=== PATIENT | female | born 1985 | race Caucasian/White ===

== ENCOUNTER 2021-02-22 05:42 | Inpatient (IN) | payer OTHER ==
[2021-02-22] MEDS ORDERED: BICITRA ORAL LIQD 30ML PO ONE (06:48)
[2021-02-22] MEDS ORDERED: METOCLOPRAMIDE 10 MG/2 ML INJ IV ONE (06:48)
[2021-02-22] MEDS ORDERED: FAMOTIDINE 20 MG/2 ML INJ IV ONE (06:48)
[2021-02-22] MEDS ORDERED: OXYTOCIN DRIP 30 UNITS/500 ML BAG IV SCH ×2 (07:00→10:00)
[2021-02-22] MEDS ORDERED: ceFAZolin/Water 2 GM/20 ML 2 GM/20 ML SYRINGE IV NR (07:00)
[2021-02-22] MEDS ORDERED: LACTATED RINGERS 1,000 ML IV SCH ×2 (07:00→17:45)
[2021-02-22] MEDS ORDERED: BUTORPHANOL 2 MG/1 ML INJ IV PRN (07:41)
[2021-02-22] MEDS ORDERED: fentaNYL 100 MCG/2 ML INJ IV PRN (07:41)
[2021-02-22] MEDS ORDERED: ACETAMINOPHEN 325 MG TAB PO PRN ×2 (07:41→09:42)
[2021-02-22] MEDS ORDERED: ONDANSETRON 4 MG/2 ML INJ ONE ×2 (08:12)
--- NOTE | 2021-02-22 08:27 | Anesthesia Day of Surgery ---
Anesthesia Day of Surgery - Day of Surgery Patient Examined: Yes Patient H&P Reviewed: Yes Patient is NPO: Yes Beta Blockers: No Pulmonary Clearance: No Ezequiel's Test: Negative
--- NOTE | 2021-02-22 08:32 | Anesthesia Consultation ---
Anesthesia Consult and Med Hx Date of service: 02/22/21 - Airway Anesthetic Teeth Evaluation: Poor ROM Head & Neck: Adequate Mental/Hyoid Distance: Adequate Mallampati Class: Class II Intubation Access Assessment: Probably Good - Pulmonary Exam CTA: Yes - Cardiac Exam Cardiac Exam: RRR - Pre-Operative Health Status ASA Pre-Surgery Classification: ASA3 Proposed Anesthetic Plan: Spinal - Pre-Anesthesia Comment Pre-Anesthesia Comments: csection 2011 - Pulmonary Hx Smoking: No (stop 2009. Smoked for a fews months) Hx Asthma: Yes Hx Respiratory Symptoms: Yes SOB: Yes COPD: Yes Home Oxygen Therapy: Yes Hx Pneumonia: Yes Hx Sleep Apnea: No (snores, denies HARRY) - Cardiovascular System Hx Hypertension: Yes (history of HTN 2yrs ago. B/p under control with diet and exercise. ) Hx Coronary Artery Disease: No Hx Heart Attack/AMI: No Hx Angina: No Hx Percutaneous Transluminal Coronary Angioplasty (PTCA): No Hx Cardia Arrhythmia: No Hx Pacemaker: No Hx Internal Defibrillator: No Hx Valvular Heart Disease: No Hx Heart Murmur: No Hx Peripheral Vascular Disease: No - Central Nervous System Hx Neuromuscular Disorder: No Hx Seizures: No CVA: No Hx Back Pain: Yes Hx Psychiatric Problems: Yes (anxiety) - Gastrointestinal Hx Ulcer: No Hx Gastroesophageal Reflux Disease: Yes - Endocrine Hx Renal Disease: Yes (Kidney infection/stones 1 yr ago ) Hx End Stage Renal Disease: No Hx Cirrhosis: No Hx Liver Disease: No Hx Insulin Dependent Diabetes: No Hx Non-Insulin Dependent Diabetes: No Hx Thyroid Disease: No Hx Hypothyroidism: No Hx Hyperthyroidism: No - Hematic Hx Anemia: No Hx Sickle Cell Disease: No - Other Systems Hx Alcohol Use: Yes (occasionally) Hx Substance Use: No Hx Cancer: No Hx Obesity: Yes
[2021-02-22] MEDS ORDERED: HYDROmorphone 1 MG/1 ML INJ IV PRN (08:47)
[2021-02-22] MEDS ORDERED: dexAMETHasone 20 MG/5 ML VIAL ONE (08:53)
[2021-02-22] MEDS ORDERED: BUPIVACAINE/PF (0.25%) 2.5 MG/ML 30 ML VIAL INFILTRATI ONE ×2 (08:54)
[2021-02-22] MEDS ORDERED: NALOXONE 0.4 MG/1 ML INJ IV PRN ×2 (09:00→09:42)
[2021-02-22] MEDS ORDERED: ONDANSETRON 4 MG/2 ML INJ IV PRN (09:00)
[2021-02-22 09:16] LABS: Basophils % (Auto) 0.1 % (0.0-1.8); Eosinophils % (Auto) 0.2 % (0.0-4.3); Hematocrit 39.3 % (30.3-42.9); Hemoglobin 13.1 gm/dl (10.1-14.3); Lymphocytes # (Auto) 1.3 K/mm3 (1.2-5.4); Lymphocytes % (Auto) 17.9 % (13.4-35.0); Mean Corpuscular HGB Conc 33 % (30-34); Mean Corpuscular Volume 92 fl (79-97); Monocytes # (Auto) 0.4 K/mm3 (0.0-0.8); Monocytes % (Auto) 5.1 % (0.0-7.3); Platelet Count 199 K/mm3 (140-440); Red Blood Count 4.28 M/mm3 (3.65-5.03); Red Cell Distribution Width 14.5 % (13.2-15.2)
[2021-02-22] MEDS ORDERED: miSOPROStol 200 MCG TAB ONE (09:19)
[2021-02-22] MEDS ORDERED: CARBOPROST TROMETHAMINE 250 MCG/1 ML INJ IM ONE (09:20)
--- NOTE | 2021-02-22 09:40 | History and Physical Report ---
History of Present Illness Date of examination: 02/22/21 Date of admission: 02/22/21 05:43 Chief complaint: Leakage of fluid History of present illness: 35-year-old -0-0-1 at 37+4 weeks who presents with gross rupture membranes. The patient cervical dilatation at presentation was 1 cm. Her course was initiated in first trimester of her . Her course is complicated by advanced maternal age, and previous delivery. Will p shauna with a primary delivery. Past History Past Medical History: no pertinent history Past Surgical History: section Social history: - Obstetrical History Expected Date of Delivery: 03/11/21 Actual Gestation: 37 Week(s) 4 Day(s) : 2 Para: 1 Hx # Term Pregnancies: 1 Number of Pregnancies: 0 Spontaneous Abortions: 0 Induced : 0 Number of Living Children: 1 Medications and Allergies Allergies Allergy/AdvReac Type Severity Reaction Status Date / Time nut - unspecified Allergy Rash Verified 12/01/15 20:24 Home Medications Medication Instructions Recorded Confirmed Last Taken Type Acetaminophen [Acetaminophen TAB] 650 mg PO Q4H PRN #15 tablet 01/06/18 Unknown Rx Active Meds: Active Medications Hydromorphone HCl (Hydromorphone 1 Mg/1 Ml Inj) 0.5 mg IV Q5M PRN PRN Reason: BREAKTHROUGH PAIN Stop: 02/22/21 18:00 Lactated Ringer's (Lactated Ringers) 1,000 mls @ 2,250 mls/hr IV PREOP B[place]TON Stop: 02/23/21 07:27 Oxytocin/Sodium Chloride (Pitocin/Ns 30 Unit/500ml) 30 units in 500 mls @ 0 mls/hr IV TITR BURTON; Protocol Cefazolin Sodium (Ancef/Sterile Water 2 Gm/20 Ml) 2 gm in 20 mls @ 80 mls/hr IV PREOP NR; Protocol Stop: 02/22/21 23:45 Naloxone HCl (Naloxone 0.4 Mg/1 Ml Inj) 0.2 mg IV Q2MIN PRN PRN Reason: Res Rate </= 8 or 02 SAT < 92% Ondansetron HCl (Ondansetron 4 Mg/2 Ml Inj) 4 mg IV Q8H PRN PRN Reason: Nausea And Vomiting Review of Systems Genitourinary: leakage of fluid - Vital Signs Vital signs: Vital Signs Temp Pulse Resp BP Pulse Ox 98.1 F 88 18 120/71 99 02/22/21 06:06 02/22/21 06:06 02/22/21 06:06 02/22/21 06:06 02/22/21 06:06 Temp Pulse Resp BP Pulse Ox 98.1 F 79 18 120/71 99 02/22/21 06:06 02/22/21 09:11 02/22/21 06:06 02/22/21 06:06 02/22/21 09:11 - Physical Exam Breasts: Positive: deferred Cardiovascular: Regular rate Lungs: Positive: Clear to auscultation Abdomen: Positive: normal appearance Results Result Diagrams: 02/22/21 08:31 Abnormal lab results 02/22/21 Range/Units 08:31 Seg Neutrophils % 76.7 H (40.0-70.0) % All other labs normal. Assessment and Plan - Patient Problems (1) Spontaneous rupture of amniotic membranes Current Visit: Yes Status: Acute Plan to address problem: Will proceed with a repeat delivery (2) Previous delivery affecting Current Visit: Yes Status: Acute
[2021-02-22] MEDS ORDERED: WITCH HAZEL/ GLYCERIN PAD TP PRN (09:42)
[2021-02-22] MEDS ORDERED: LANOLIN/ZINC/DIMETHICONE (LANSINOH) 7 GM TP PRN (09:42)
[2021-02-22] MEDS ORDERED: MAGNESIUM HYDROXIDE (MOM) ORAL LIQD UDC PO PRN (09:42)
[2021-02-22] MEDS ORDERED: MORPHINE 4 MG/1 ML INJ IV PRN (09:42)
[2021-02-22] MEDS ORDERED: IBUPROFEN 600 MG TAB PO PRN (09:42)
--- NOTE | 2021-02-22 09:49 | Procedure Note ---
OB Delivery Note - Delivery Date of Delivery: 02/22/21 Surgeon: JAIME LLOYD - Section Preop diagnosis: repeat Postop diagnosis: same section procedure: section, repeat low transverse Disposition: PACU Complications: none - Infant A at 1 minute: 8 (Weight 3.43 kg) at 5 minutes: 9 Gender: Male
--- NOTE | 2021-02-22 09:52 | Operative Report ---
Operative Report Operative Report: Date of surgery: February 22, 2021 Preoperative diagnosis: at 37+4 weeks; previous delivery; spontaneous rupture membrane Postoperative diagnosis: Same as above Procedure: Repeat low transverse delivery Surgeon: Madai Montano M.D. Anesthesia: Regional Estimated blood loss: 540 mL Findings: Liveborn male infant with Apgars of 8 and 9 weight 3.43 kg Indications: 35-year-old -0-0-1 at 37+4 weeks who presents with spontaneous rupture membranes and a cervical dilatation of 1 cm. The patient is elected to proceed with a repeat delivery. Procedure: The patient was taken to the operating room and given regional anesthesia without complication. She was prepped and draped in a normal sterile fashion. A Pfannenstiel skin incision was made down to layer the fascia which was nicked in the midline extended laterally with the Bovie cautery. The superior aspect of the rectus fascia was grasped with Meddybemps clamps x2 and the rectus muscles off sharply. This was done in inferior fashion as well. The rectus muscle midline and peritoneum entered bluntly. An John retractor was then inserted. A bladder blade was placed. The vesicouterine peritoneum was then entered sharply with Metzenbaum scissors. A bladder flap was created digitally. A low transverse uterine incision was then made and extended digitally. There was clear fluid upon entry into the uterine cavity. The head was delivered through the incision with fundal pressure. The cord was clamped and cut x2 and infant was passed off to pediatrics. The placenta was then manually extracted. The uterus was then exteriorized and cleared of clots and debris. The uterine incision was then closed in a running locked fashion with 0 Vicryl additional imbricating stitch was applied for 2 layer closure. The posterior cul-de-sac was then copiously irrigated. The uterus was replaced back into the abdomen and pelvis were the gutters were then irrigated. The John retractor was then removed. The peritoneum was then reapproximated with 3-0 Vicryl incorporating the rectus muscle. The fascia was then closed with 0 Vicryl in a running fashion. The skin was then reapproximated with 3-0 Monocryl on a Tahir needle subcuticular fashion. Steri-Strips to place across the incision and a Crede procedures performed at the end of the surgery. A pressure dressing was applied to the incision. The surgery productive of a liveborn male infant with Apgars of 8 and 9 weight 3.43 kg. The patient was taken to the recovery room in stable condition. All sponge laps and needle counts correct x2.
[2021-02-22] MEDS ORDERED: PHENYLEPHRINE/NS 1,000 MCG/10 ML SYRINGE (OR USE) IV ONE (10:28)
[2021-02-22] MEDS ORDERED: ceFAZolin/STERILE WATER 2 GM/20 ML SYRINGE IV ONE (10:33)
[2021-02-22] MEDS ORDERED: WATER FOR IRRIG STERILE 1,500 ML BOTTLE IR ONE (10:53)
[2021-02-22] MEDS ORDERED: SODIUM CHLORIDE 0.9% IRR 1,500 ML BOTTLE IR ONE (10:53)
[2021-02-22] MEDS: KETOROLAC 30 MG/1 ML INJ IV PRN (17:42)
[2021-02-23] MEDS: KETOROLAC 30 MG/1 ML INJ IV PRN (00:14)
[2021-02-23 00:33] LABS: Hematocrit 31.6 % (30.3-42.9); Hemoglobin 10.6 gm/dl (10.1-14.3)
--- NOTE | 2021-02-23 07:36 | Progress Note ---
Assessment and Plan A: POD#1 s/p repeat section at term Morbid Obesity Advanced Maternal Age P: Routine postoperative advances Subjective - Subjective Date of service: 02/23/21 Principal diagnosis: s/p repeat at term, MO, AMA Interval history: No overnight events Patient reports: appetite normal, voiding normally, pain well controlled, flatus, ambulating normally, no bowel movement [place]: doing well Objective - Vital Signs Latest vital signs: Vital Signs Temp Pulse Resp BP BP Pulse Ox Pulse Ox 02/23/21 04:45 98.6 F 76 18 110/62 99 02/23/21 00:44 18 02/23/21 00:14 18 02/22/21 23:32 98.5 F 71 20 101/62 97 02/22/21 21:28 18 02/22/21 20:58 18 02/22/21 20:24 100 02/22/21 20:15 98.1 F 72 20 107/54 98 02/22/21 15:16 97.8 F 70 20 105/64 100 02/22/21 13:30 97.7 F 74 18 98/60 100 100 02/22/21 12:59 98.0 F 82 16 100/58 100 02/22/21 12:45 86 19 107/50 100 02/22/21 12:30 81 16 102/54 100 02/22/21 12:15 90 17 107/56 100 02/22/21 12:00 88 20 123/57 100 02/22/21 11:45 87 19 110/56 100 02/22/21 11:40 78 16 102/55 100 02/22/21 11:29 97.8 F 62 15 127/62 100 02/22/21 09:11 79 99 02/22/21 09:06 82 99 02/22/21 09:01 78 99 02/22/21 08:56 92 H 100 02/22/21 08:51 83 99 02/22/21 08:46 84 99 02/22/21 08:41 92 H 99 02/22/21 08:36 83 98 02/22/21 08:31 84 99 02/22/21 08:26 91 H 99 02/22/21 08:21 89 99 02/22/21 08:16 88 100 02/22/21 08:11 86 99 02/22/21 08:06 84 99 02/22/21 08:01 92 H 100 02/22/21 07:58 85 82 L 02/22/21 07:56 79 97 02/22/21 07:51 84 98 02/22/21 07:46 92 H 98 02/22/21 07:41 86 99 02/22/21 07:36 81 99 Intake and Output 02/22/21 02/23/21 02/23/21 22:59 06:59 14:59 Intake Total 120 360 Output Total 1650 800 Balance -1530 -440 Intake: Oral 120 360 Output: Urine 1650 800 Indwelling Catheter 1650 600 Void 200 Other: Total, Intake Amount 120 240 Total, Output Amount 1650 200 # Voids Void 1 - Exam Breasts: Present: deferred Abdomen: Present: soft (obese ) Uterus: Present: fundal height at umbilicus Extremities: Present: edema (1+) - Labs Labs: Abnormal lab results 02/22/21 Range/Units 08:31 Seg Neutrophils % 76.7 H (40.0-70.0) %
[2021-02-23] MEDS: oxyCODONE /ACETAMINOPHEN 5-325MG TAB PO PRN ×3 (08:30→22:53)
--- NOTE | 2021-02-23 11:48 | Progress Note ---
Spinal Anesthesia Block - Spinal Anesthesia Block Start Time: 10:15 Stop Time: 10:25 Performed by:: VICTOR HUGO TERRELL Procedure: 02/22/2021 Patient IDed, H&P reviewed, all questions and concerns were answered, and consent was signed. Timeout was performed at bedside. Patient in sitting position. Sterile prep and drape was performed. [3] ml of 1% lidocaine skin wheal at L[3]- L [4]. Needle introducer advanced. 25 gauge spinal needle advanced. Clear, free flowing CSF. negative blood, negative paresthesia. Spinal dose given. All needles removed. Patient tolerated procedure.
--- NOTE | 2021-02-23 11:49 | Progress Note ---
Regional Anesthesia Block - Regional Anesthesia Block Start Time: 11:40 Stop Time: 11:47 Performed By:: VICTOR HUGO TERRELL Procedure: 02/22/2021 Patient consented for TAP block for post surgical pain management. Patient identified, monitors placed, and time out performed. TAP identified bilaterally via ultrasound. Skin prepped bilaterally with [chlorhexidine] and [22g stimuplex] needle advanced to the TAP. [Marcaine 0.25% 30ml] injected under ultrasound guidance on the [left] side. [Marcaine 0.25% 30ml] injected under ultrasound guidance on the [right] side. Negative aspiration every 5mL, No change in heart rate or rhythm. Patient tolerated the procedure well. No apparent complications seen.
--- NOTE | 2021-02-23 11:54 | Post Anesthesia Evaluation ---
- Post Anesthesia Evaluation Patient Participated: Yes Airway Patent: Yes Stable Respiratory Function: Yes Nausea/Vomiting: No Temp > 96.8F: Yes Pain Manageable: Yes Adequeate Hydration: Yes Anesthesia Complications: No Block Receding Appropriately: Yes Patient on Ventilator: No
--- NOTE | 2021-02-24 12:05 | Discharge Summary ---
Providers - Providers Date of Admission: 02/22/21 05:43 Date of discharge: 02/24/21 Attending physician: RONI ERNANDEZ Primary care physician: RONI ERNANDEZ Hospitalization Reason for admission: section Procedure: repeat low transverse Episiotomy: none Laceration: none Incision: normal, dry, intact complications: none Discharge diagnosis: IUP at term delivered Condition at discharge: Good Disposition: 01 HOME / SELF CARE / HOMELESS Plan - Discharge Medications Prescriptions: Ibuprofen [Motrin] 800 mg PO Q8HR PRN #30 tablet PRN Reason: Pain, Moderate (4-6) oxyCODONE /ACETAMINOPHEN [Percocet 5/325] 1 tab PO Q6HR PRN #30 tablet PRN Reason: Pain - Provider Discharge Summary Activity: routine, no sex for 6 weeks, no heavy lifting 4 weeks Diet: routine Instructions: routine Additional instructions: [] Smoking cessation referral if applicable(refer to patient education folder for contact #) [] Refer to [facility]'s [facility] Booklet Call your doctor immediately for: * Fever > 100.5 * Heavy vaginal bleeding ( >1 pad per hour) * Severe persistent headache * Shortness of breath * Reddened, hot, painful area to leg or breast * Drainage or odor from incision. * Keep incision clean and dry at all times and follow doctor's instructions regarding bathing/showering - Follow up plan Follow up: RONI ERNANDEZ MD [Primary Care Provider] - 14 Days
[2021-02-24 12:56] VITALS: BP 114/59
[2021-02-24] MEDS: oxyCODONE /ACETAMINOPHEN 5-325MG TAB PO PRN (14:00)
== END 2021-02-24 14:45 | disposition home or self-care (01) | DRG 788 ==
LOC: TRG 05:42 → APU 05:43 → TRG 07:52 → APU 10:44 → OB 13:10
PROVIDERS: ADMIT Obstetrics & Gynecology; ATTEND Obstetrics & Gynecology
PROC: 10D00Z1 Extraction of Products of Conception, Low, Open Approach (ICD-10-PCS; principal; 2021-02-22)
PROC: 3E0T3BZ Introduction of Anesthetic Agent into Peripheral Nerves and Plexi, Percutaneous Approach (ICD-10-PCS; 2021-02-22)
DX: O99.52 Diseases of the respiratory system complicating childbirth (principal); O34.211 Maternal care for low transverse scar from previous cesarean delivery; Z3A.37 37 weeks gestation of pregnancy; Z37.0 Single live birth; J45.909 Unspecified asthma, uncomplicated; O99.62 Diseases of the digestive system complicating childbirth; K21.9 Gastro-esophageal reflux disease without esophagitis; O99.214 Obesity complicating childbirth; E66.01 Morbid (severe) obesity due to excess calories; Z20.822 Contact with and (suspected) exposure to COVID-19
CPT/HCPCS: 36415; 59025; 85014; 85018; 85025; 86850; 86900; 86901; G0378; J3490; J7121; J0690; J1100; J1885; J2270; J2370; J2405; J2765; J7120; U0003